=== PATIENT | male | born 1930 | race Caucasian/White ===

== ENCOUNTER 2017-01-12 06:41 | Outpatient (CLI) | payer MEDICARE, OTHER | END 2017-01-12 06:42 | disposition critical access hospital (66) | DX: R42 Dizziness and giddiness (principal) | CPT/HCPCS: A0425; A0429 ==

== ENCOUNTER 2017-01-12 06:51 | Emergency (ER) | payer MEDICARE, OTHER ==
[2017-01-12] MEDS ORDERED: GADOBUTROL 7.5 MMOL/7.5 ML VIAL IVP ONE (10:06)
== END 2017-01-12 12:23 | disposition home or self-care (01) ==
DX: R27.0 Ataxia, unspecified (principal); Z85.46 Personal history of malignant neoplasm of prostate; Z85.51 Personal history of malignant neoplasm of bladder
CPT/HCPCS: 36415; 70544; 70549; 70553; 80048; 85025; 93005; 93010; 99283; 99284; A9585